=== PATIENT | female | born 1965 | race Caucasian/White ===

== ENCOUNTER 2025-02-23 00:24 | Day surgery (SDC) | payer BC, SELFPAY ==
[2025-02-09 12:06] VITALS: BMI 25.2
--- OUTSIDE RECORDS SUMMARY | 2025-02-23 00:27 | XMS_ITS | Clinical Summary ---
Author Organization [facility] Address [address] [place] [address] Care Team Providers Care Compounding Scaler Name Role Phone Nilam Elliott MD Primary Care Provider + Allergies Active Allergy Reactions Criticality Noted Date Comments Penicillins Rash Low 01/15/2020 Medications lisinopril 20 MG tablet Take 20 mg by mouth daily. 05/31/2019 Active hydroCHLOROthiaz carol 25 MG tablet Take 25 mg by mouth daily. 10/31/2019 Active Multiple Vitamin (MULTI-VITAMIN DAILY OR) Take 1 tablet by mouth daily. Active ibuprofen 600 MG tablet Take 1 tablet (600 mg total) by mouth every 6 (six) hours as needed. 30 tablet 01/15/2020 Active buPROPion XL (WELLBUTRIN XL) 150 MG 24 hr tablet Take 150 mg by mouth daily. 11/18/2021 Active cetirizine (ZYRTEC) 10 MG tablet Take 10 mg by mouth daily. Active Active Problems Problem Noted Date Diagnosed Date Appendicitis 01/15/2020 Iron deficiency anemia due to chronic blood loss 05/30/2017 Neutropenia 05/30/2017 Family History Medical History Relation Comments Cancer Brother Hypertension Brother Diabetes Father Heart Disease Father Heart Disease Mother Cancer Sister Hypertension Sister Relation Status Comments Brother Father Mother Sister Social History Tobacco Use Types Packs/Day Years Used Date Smoking Tobacco: Never Smokeless Tobacco: Never Alcohol Use Standard Drinks/Week Comments Yes 0 (1 standard drink = 0.6 oz pur e alcohol) ocassionally Comments No Sex and Gender Information Value Date Recorded Sex Assigned at Not on file Legal Sex Female 4:27 PM CDT Gender Identity Not on file Sexual Orientation Not on file Last Filed Vital Signs Vital Sign Reading Time Taken Comments Blood Pressure 135/90 02/28/2022 1:44 PM CDT Pulse 63 02/28/2022 1:21 PM CDT Temperature 36.4 C (97.5 F) 02/28/2022 12:51 PM CDT Respiratory Rate 16 02/28/2022 1:21 PM CDT Oxygen Saturation 100% 02/28/2022 1:44 PM CDT Inhaled Oxygen Concentration - - Weight 68 kg (150 lb) 02/28/2022 11:10 AM CDT Height 162.6 cm (5' 4) 02/28/2022 11:10 AM CDT Body Mass Index 25.75 02/28/2022 11:10 AM CDT Plan of Treatment Health Maintenance Due Date Last Done Comments Annual Physical 1966 Hepatitis C 1981 DTaP, Tdap and Td Vaccines (1 - Tdap) 1982 Pneumococcal Vaccine: 50+ Years (1 of 1 - PCV) 2013 Zoster Vaccines (1 of 2) 2013 Colorectal Cancer Screening Colonoscopy (10 Years) 05/05/2021 05/05/2011 COVID-19 Vaccine ( season) 2024 11/09/2020, 10/19/2020 Mammogram Screening 03/18/2026 03/18/2024, 03/15/2023, 01/20/2022, Additional history exists RSV Immunization or 60+ Years (1 - 1-dose 75+ series) 2038 Meningococcal B Vaccine Aged Out No l onger eligible based on patient's age to complete this topic Meningococcal Vaccine Aged Out No peggy brooke eligible based on patient's age to complete this topic RSV Immunizations Under 20 Months Aged Out No longer eligible based on patient's age to complete this topic Procedures Procedure Name Priority Date/Time Associated Diagnosis Comments MG SCREENING W CHARLEE HASMUKH DIGI Routine 03/18/2024 4:27 PM CDT Visit for screening mammogram COLONOSCOPY Routine 05/05/2011 12:00 AM CDT from Last 3 Months or Most Recently Relevant to Health Maintenance Results * MG SCREENING W CHARLEE HASMUKH DIGI (03/18/2024 4:27 PM CDT) Anatomical Region Laterality Modality Breast Bilateral Mammography 03/19/2024 8:04 AM CDT Impressions 03/19/2024 8:06 AM CDT IMPRESSION: No significant interval change. No mammographic evidence of malignancy. RECOMMENDATION: Routine ScreeningBilateral OVERALL IMAGING ASSESSMENT: ACR BI-RADS 2 - BENIGN FINDING(S). Ordered By: NILAM SOTELO Interpreted By: Dave Tuttle, 03/19/2024 8:04 AM Narrative 03/19/2024 8:06 AM CDT EXAMINATION: MG SCREENING W CHARLEEJose MCFARLAND INDICATIONS: Screening TECHNIQUE: Digital full field CC and MLO screening mammography bilaterally to include 3-D Tomosynthesis technique. This study was read with the assistance of a computer-aided detection system. HISTORY: No reported breast complaint. No documented personal or first degree family history of breast cancer. No documented prior breast procedure. COMPARISON: Multiple prior examinations available for comparison dating back to 09/26/2000, the most recent of 03/15/2023, 01/20/2022, and 12/21/2020 TISSUE DENSITY: The breast tissue is heterogeneously dense, which may obscure small masses. FINDINGS: Few typically benign round calcifications. No suspicious microcalcification or mass. No developing asymmetry or architectural distortion. No axillary adenopathy. Nilam Sotelo MD MAMMO Final Re sult * Colonoscopy (05/05/2011 12:00 AM CDT) 05/05/2011 05/05/2011 Narrative [facility] TO EPIC CONVERSION - 05/05/2011 12:00 AM CDT Documented hx of procedure Procedure Note Maritza Britt MD - 05/26/2018 Documented hx of procedure us Generic Conversion Md BRITT GI PROCEDURE ORDERABLES Final Result [facility] TO EPIC CONVERSION from Last 3 Months or Most Recently Relevant to Health Maintenance Insurance [facility] Advance Directives * Full Code (Latest Code Status on File) Date Activated Date Inactivated Comments 01/15/2020 7:49 AM 01/15/2020 7:36 PM Care Teams Compounding Scaler Relationship Specialty Start Date End Date Nilam Elliott MD [facility] [place] [address] PCP - General FAMILY PRACTICE 01/06/19
--- OUTSIDE RECORDS SUMMARY | 2025-02-23 00:27 | XMS_ITS | Clinical Summary ---
Author Organization [facility] Address [address] [place] [address] Phone Care Team Providers Care Shop Helper Name Role Phone Nilam Elliott MD Primary Care Provider + Allergies Active Allergy Reactions Criticality Noted Date Comments Penicillins Rash 05/30/2017 Medications lisinopril (PRINIVIL, ZESTRIL) 20 MG Tablet Take 20 mg by mouth daily. Active hydroCHLOROthiaz carol 25 MG Tablet Take 25 mg by mouth daily. Active Multiple Vitamins-Mineral s (MULTIVITAMIN PO) Take by mouth. Activ e buPROPion (WELLBUTRIN) 150 MG XL tablet Take 150 mg by mouth daily. 1 Active Ferrous Sulfate (Iron) 325 (65 Fe) MG TabletIndication s:Iron Deficiency Anemia Take 1 Tablet by mouth daily. Indications: Anemia From Inadequate Iron in the Body 30 Tablet 6 3 Active Cyanocobalamin (VITAMIN B-12 PO) Take by mouth. Activ e Hyoscyamine Sulfate 0.125 MG TABLET DISPERSIBLE Take 0.125 mg by mouth daily. 4 Active nitrofurantoin, monohydrate-macr ocrystal, (MACROBID) 100 MG Capsule Take 100 mg by mouth daily. 4 Active Active Problems Problem Noted Date Diagnosed Date Neutropenia 05/30/2017 Iron deficiency anemia due to chronic blood loss 05/30/2017 Immunizations Immunization Administration Dates Next Due Covid-19, Mrna, Lnp-s, Pf, 30 Mcg/0.3 Ml Dose (Stuart vasques) 11/09/2020,10/19/2020 Family History Medical History Relation Name Comments Cancer Brother rectal Congestive Heart Failure Father Cardiomyopathy Mother Stroke Paternal Grandmother Cancer Sister thyroid Relation Name Status Comments Brother Alive Father Mother Paternal Grandmother Sister Alive Social History Tobacco Use Types Packs/Day Years Used Date Smoking Tobacco: Never Smokeless Tobacco: Never Tobacco Cessation:Counseling Given: Not Answered Alcohol Use Standard Drinks/Week Comments Yes 5 (1 standard drink = 0.6 oz pur e alcohol) PHQ-2 Answer Date Recorded Total Score - Questions 1-9 0 12/21 Comments Unknown Sex and Gender Information Value Date Recorded Sex Assigned at Not on file Legal Sex Female 8:39 AM CDT Gender Identity Not on file Sexual Orientation Not on file Last Filed Vital Signs Vital Sign Reading Time Taken Comments Blood Pressure 134/70 09/05/2024 8:34 AM MULTIMEDIA SPECIALIST Pulse 84 09/05/2024 8:34 AM MULTIMEDIA SPECIALIST Temperature 37 C (98.6 F) 09/05/2024 8:34 AM MULTIMEDIA SPECIALIST Respiratory Rate 18 09/05/2024 8:34 AM MULTIMEDIA SPECIALIST Oxygen Saturation 98% 09/05/2024 8:34 AM MULTIMEDIA SPECIALIST Inhaled Oxygen Concentration - - Weight 67.4 kg (148 lb 8 oz) 09/05/2024 8:34 AM MULTIMEDIA SPECIALIST Height 162.6 cm (5' 4) 09/05/2024 8:34 AM MULTIMEDIA SPECIALIST Body Mass Index 25.49 09/05/2024 8:34 AM MULTIMEDIA SPECIALIST Plan of Treatment Upcoming Encounters Date Type Department Care Team (Late st Contact Info) Description 03/06/2025 8:15 AM CDT Office Visit [facility] [address] [place] [address] Binh Hernandez, DO [address] [place] [address] Aliya Steel, DIRECTOR FEDERAL, [employer] [address] [facility], [address] [place] [address] Health Maintenance Due Date Last Done Comments Hepatitis C Virus (HCV) Screening 1965 Immunochemical Fecal Occult Blood 2008 Pneumococcal Immunization (50+ years) (1 of 1 - PCV) 2013 Colonoscopy 05/05/2021 05/05/2011 SARS-COV-2 Immunization ( - season) 2024 06/25/2021, 11/09/2020, 10/19/2020 Mammogram 03/18/2025 03/18/2024, 02/21, 03/15/2023, Additional history exists Influenza Immunization (#1) 03/23/202504/22, 05/14/2023, 04/10/2022, Additional history exists Cologuard 01/15/2026 01/15/2023 Colorectal Cancer Screening 01/15/2026 Respiratory Syncytial Virus (RSV) Immunization (Adult) (1 - 1-dose 75+ series) 2038 DTaP/Tdap/Td Immunization Discontinued 02/21/2021 TdaP Immunization Completed 02/21/2021 Zoster Immunization Completed 07/25/2022, Hepatitis B Immunization Aged Out No longer eligible based on patient's age to complete this topic Human Papillomavirus (HPV) Immunization Aged Out No longer eligible based on patient's age to complete this topic Meningococcal Immunization (ACWY) Aged Out No longer eligible based on patient's age to complete this topic Rotavirus Immunization Aged Out No lo nger eligible based on patient's age to complete this topic Procedures Procedure Name Priority Date/Time Associated Diagnosis Comments COLOGUARD Routine 01/15/2023 7:50 AM CDT Iron deficiency anemia due to chronic blood loss from Last 3 Months or Most Recently Relevant to Health Maintenance Results * COLOGUARD (01/15/2023 7:50 AM CDT) Cologuard Negative Negative [facility] Comment: NEGATIVE TEST RESULT. A negative Cologuard result indicates a low likelihood that a colorectal cancer (CRC) or advanced adenoma (adenomatous polyps with more advanced pre-malignant features) is present. The chance that a person with a negative Cologuard test has a colorectal cancer is less than 1 in 1500 (negative predictive value >99.9%) or has an advanced adenoma is less than 5.3% (negative predictive value 94.7%). These data are based on a prospective cross-sectional study of 10,000 individuals at average risk for colorectal cancer who were screened with both Cologuard and colonoscopy. (Izabel Medina, N Engl J Med 2014;370(14):7969-9041) The normal value (reference range) for this assay is negative. COLOGUARD RE-SCREENING RECOMMENDATION: Periodic colorectal cancer screening is an important part of preventive healthcare for asymptomatic individuals at average risk for colorectal cancer. Following a negative Cologuard result, the [place] [employer] Society and U.S. Multi-Society Task Force screening guidelines recommend a Cologuard re-screening interval of 3 years. References: [place] [employer] Guideline for Colorectal Cancer Screening: https://www.cancer.org/cancer/filsm-yorypm-xjociu/mmelnohww-wikszmpyj-fxzcscp/ acs-recommendations.html.; Kyree DK, Danny VERGARA, Iona FriedK, Colorectal Cancer Screening: Recommendations for Physicians and Patients from the U.S. Multi-Society Task Force on Colorectal Cancer Screening , Am J Gastroenterology 2017; 112:0917-6072. TEST DESCRIPTION: Composite algorithmic analysis of stool DNA-biomarkers with hemoglobin immunoassay. Quantitative values of individual biomarkers are not reportable and are not associated with individual biomarker result reference ranges. Cologuard is intended for colorectal cancer screening of adults of either sex, 45 years or older, who are at average-risk for colorectal cancer (CRC). Cologuard has been approved for use by the U.S. FDA. The performance of Cologuard was established in a cross sectional study of average-risk adults aged 50-84. Cologuard performance in patients ages 45 to 49 years was estimated by sub-group analysis of near-age groups. Colonoscopies performed for a positive result may find as the most clinically significant lesion: colorectal cancer [4.0%], advanced adenoma (including sessile serrated polyps greater than or equal to 1cm diameter) [20%] or non- advanced adenoma [31%]; or no colorectal neoplasia [45%]. These estimates are derived from a prospective cross-sectional screening study of 10,000 individuals at average risk for colorectal cancer who were screened with both Cologuard and colonoscopy. (Izabel Jerome al, N Engl J Med 2014;370(14):1949-5572.) Cologuard may produce a false negative or false positive result (no colorectal cancer or precancerous polyp present at colonoscopy follow up). A negative Cologuard test result does not guarantee the absence of CRC or advanced adenoma (pre-cancer). The current Cologuard screening interval is every 3 years. ([place] [employer] Society and U.S. Multi-Society Task Force). Cologuard performance data in a 10,000 patient pivotal study using colonoscopy as the reference method can be accessed at the following location: www.Ziffi.com/results. Additional description of the Cologuard test process, warnings and precautions can be found at www.Gojimooguard.com. Stool 01/15/2023 7:50 AM CDT 01/17/2023 4:58 PM CDT Belem Warren APRN, [employer] BODY FLUIDS & STOOLS ORDERABLES Final Result [employer] [facility] [address] [place] [address], [employer] [address] [facility] [place] [address] from Last 3 Months or Most Recently Relevant to Health Maintenance Insurance [facility] Care Teams Shop Helper Relationship Specialty Start Date End Date Nilam Elliott MD [address] [place] [id number] PCP - General Family Medicine 05/22/17
--- NOTE | 2025-02-23 10:56 | WPDANESEPPF ---
Anes - Initial Pre Proc Eval Procedure: Operation Date: 02/23/25 12:30 Proposed Procedures p Colonoscopy - Chriss Marin MD Date/Time: 02/23/25 10:56 Surgeon: Chriss Marin MD Pre Op Diagnosis: irritable bowel syndrome Patient Data Age: 59 Gender: F Height: 1.63 m Weight: 66.7 kg Allergies Allergy/AdvReac Type Severity Reaction Status Date / Time penicillin G AdvReac Rash Verified 02/23/25 10:55 Home Medications ?Medication ?Instructions ?Recorded ?Confirmed ?Type amitriptyline 10 mg tablet 20 mg (2 x 10 mg) PO QHS 1 month 11/24/24 02/09/25 Rx #60 tabs bupropion HCl 150 mg 24 hr tablet, 150 mg PO QAM 11/24/24 02/09/25 History extended release (Wellbutrin XL) cetirizine 10 mg tablet (Zyrtec) 10 mg PO DAILY PRN allergy symptoms 11/24/24 02/09/25 History ferrous sulfate 27 mg iron tablet 27 mg PO DAILY 11/24/24 02/09/25 History hydrochlorothiazide 25 mg tablet 25 mg PO DAILY 11/24/24 02/09/25 History lisinopril 20 mg tablet 20 mg PO DAILY 11/24/24 02/09/25 History icirofqi-gnd-ijkof ac 400 1 tablet PO DAILY 11/24/24 02/09/25 History mcg-calcium carb 500 mg-vit K1 20 mcg tablet (Women's 50 Plus Multivitamin) Patient hx anesthesia problems: none Family hx anesthesia problems: none Results Review: All pre-operative results and documents have been reviewed as part of the pre-operative evaluation. [facility] Past Medical History Medical History (Updated 02/23/25 @ 08:08 by Carlos Dia DO) Fibroid IBS (irritable bowel syndrome) History of diverticulitis HTN (hypertension) Family history of rectal cancer History of colon polyps BEAU (iron deficiency anemia) Surgical History Surgical History (Updated 11/24/24 @ 09:46 by RADHA Pollock) History of appendectomy H/O: hysterectomy Social History Social History Smoking status: Never smoker Substance use type: does not use Anes - Eval Final PreProcedure Day of Procedure 02/23/25 10:56 Patient weight: overweight Heart: regular rate and rhythm Lungs: clear to auscultation Airway: Mallampati scale class II Neurological: alert and oriented Last oral intake: >/= 8 hours ASA classification: II Emergent: no Anesthetic plan: proceed Anesthesia type and monitoring: general GIVS and standard monitoring Results Review: All pre-operative results and documents have been reviewed as part of the pre-operative evaluation. Informed Consent: The patient's anesthetic plan and its attendant risks and benefits were discussed with the patient/family/POA. Questions were solicited and answers provided to the satisfaction of the patient/family/POA.
[2025-02-23 10:57] VITALS: BP 132/89; PULSE 100; RESP 19; TEMP 36.4; O2SAT 100
[2025-02-23] MEDS: LACTATED RINGERS 1,000 ML 150 ML IV CONT (11:13)
--- NOTE | 2025-02-23 12:14 | PM.HPGS ---
History of Present Illness History of Present Illness Consent: Risks, benefits, and alternatives have been discussed and questions answered. Patient agrees to proceed with procedure. Chief complaint: irritable bowel syndrome Narrative: Kristy Owens is a 59 year old female here for colonoscopy, last one in 2017, brother had rectal cancer. Review of Systems Review of Systems: All systems reviewed & are unremarkable except as noted in HPI and below PMFSH Past Medical History Medical History (Updated 02/23/25 @ 08:08 by Carlos Dia, ) Fibroid IBS (irritable bowel syndrome) History of diverticulitis HTN (hypertension) Family history of rectal cancer History of colon polyps BEAU (iron deficiency anemia) Surgical History Surgical History (Updated 11/24/24 @ 09:46 by RADHA Pollock) History of appendectomy H/O: hysterectomy Social History Social History Smoking status: Never smoker Substance use type: does not use Meds Home Medications and Allergies Home Medications ?Medication ?Instructions ?Recorded ?Confirmed ?Type amitriptyline 10 mg tablet 20 mg (2 x 10 mg) PO QHS 1 month 11/24/24 02/23/25 Rx #60 tabs bupropion HCl 150 mg 24 hr tablet, 150 mg PO QAM 11/24/24 02/23/25 History extended release (Wellbutrin XL) cetirizine 10 mg tablet (Zyrtec) 10 mg PO DAILY PRN allergy symptoms 11/24/24 02/23/25 History ferrous sulfate 27 mg iron tablet 27 mg PO DAILY 11/24/24 02/23/25 History hydrochlorothiazide 25 mg tablet 25 mg PO DAILY 11/24/24 02/23/25 History lisinopril 20 mg tablet 20 mg PO DAILY 11/24/24 02/23/25 History jypzclpz-utp-tgbot ac 400 1 tablet PO DAILY 11/24/24 02/23/25 History mcg-calcium carb 500 mg-vit K1 20 mcg tablet (Women's 50 Plus Multivitamin) Allergies Allergy/AdvReac Type Severity Reaction Status Date / Time penicillin G AdvReac Rash Verified 02/23/25 10:55 Vital Signs Vital Signs - 24 hr 02/23/25 10:57 Temperature 97.5 F L Pulse Rate 100 Respiratory Rate 19 Blood Pressure 132/89 Pulse Oximetry 100 Oxygen Delivery Room Air Exam Const: General: comfortable and no acute distress HENMT: Face/Nose/Sinus: Normal nares present Eyes: General: appearance normal, both eyes and all related structures Neck: Neck: no JVD Resp: Auscultation: clear to auscultation bilaterally Cardio: Rate: regular rate Rhythm: regular rhythm GI: Inspection: non-distended GI Palp: Yes Soft to palpation Skin: General skin exam: normal color Neuro: Speech: normal speech Extrem: General: normal to inspection Psych: Mental Status: mental status grossly normal Assessment and Plan Assessment and plan (1) Family history of rectal cancer: Code(s): Z80.0 - Family history of malignant neoplasm of digestive organs Status: Acute Assessment and Plan: colonoscopy
[2025-02-23 12:31] VITALS: BP 99/59; PULSE 80; RESP 20; O2SAT 100
[2025-02-23 12:41] VITALS: BP 106/62; PULSE 76; RESP 19; O2SAT 100
[2025-02-23 12:51] VITALS: BP 129/71; PULSE 69; RESP 17; O2SAT 100
== END 2025-02-23 12:55 | disposition home or self-care (01) ==
PROVIDERS: PCP Family Medicine; Visit Provider Internal Medicine Gastroenterology
PROC: 0DJD8ZZ Inspection of Lower Intestinal Tract, Via Natural or Artificial Opening Endoscopic (ICD-10-PCS; CPT 45378; principal; 2025-02-23 12:30)
DX: Z12.11 Encounter for screening for malignant neoplasm of colon (principal); K57.30 Diverticulosis of large intestine without perforation or abscess without bleeding; K58.9 Irritable bowel syndrome, unspecified; I10 Essential (primary) hypertension; D50.9 Iron deficiency anemia, unspecified; Z98.890 Other specified postprocedural states; Z87.19 Personal history of other diseases of the digestive system; Z86.0100 Personal history of colon polyps, unspecified; Z80.0 Family history of malignant neoplasm of digestive organs
CPT/HCPCS: 45378; J2003; J2704; J7120